=== PATIENT | female | born 1980 | race Caucasian/White ===

== ENCOUNTER 2017-12-12 07:00 | Inpatient (IN) | payer MEDICAID, SELFPAY ==
[2017-12-12 07:08] VITALS: BMI 40.4
[2017-12-12] MEDS: Lactated Ringers 1,000 ML 50 ML IV ×4 (07:30→21:13)
[2017-12-12 07:56] LABS: Hematocrit 34.7 % (37-47); Hemoglobin 12.2 g/dl (12.0-15.0); Mean Corp Hgb Conc 35.2 g/gl (32-36); Mean Corpuscular Hgb 33.2 pg (27.0-32.0); Mean Corpuscular Volume 94.6 fL (81-99); Mean Platelet Vol. 11.8 fl (6.2-12.0); Platelet Count 121 K/mm3 (150-450); RBC Distribution Width SD 43.1 fl (35.1-43.9); Red Blood Count 3.67 M/mm3 (4.2-5.4); Scan Indicated on CBC? Y/N NO; White Blood Count 8.7 K/mm3 (4.4-11.0)
[2017-12-12] MEDS: 0.9% Normal Saline 100 ML IV.SOLN. INTRA-UTER (08:20)
[2017-12-12] MEDS: Oxytocin 30 units/NS 500 ml 30 UNITS/500 ML IV.SOLN IV (08:20)
--- NOTE | 2017-12-12 08:44 | PCM.HP.OB ---
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 Patient saw Dr. Laughlin yesterday for visit and mutual decision was made by Dr. Laughlin and patient to induce today. Pertinent Past Medical History: See Problem list - Hx of AMA, Obesity in this . Hx of Shoulder Dystocia in a previous . Hx of depression - r/t of her mother. Patient has been off medication for 18 years. Has sought out counseling in the past. Hx of HSV2 - has taken PO Acyclovir as directed since 36 wga Allergies azithromycin [From Zithromax Z-Aaron] Adverse Reaction (Verified 04/17/16 23:57) Upset Stomach Smoking Status: Never smoker Alcohol: None Number of Fetus(es): 1 Review of Systems Constitutional: Denies: Chills, Fever, Weight Change HEENT: Denies: Head Aches, Sinus Congestion, Sinus Drainage Cardiovascular: Denies: Chest Pain, Palpitations Respiratory: Denies: Cough, Shortness of breath at rest, Sputum production Gastrointestinal: Denies: Abdominal Pain, Nausea, Vomiting Genitourinary: Denies: Dysuria Gynecological: Denies: Vaginal bleeding, Vaginal discharge Musculoskeletal: Denies: Joint Pain, Joint Tenderness Skin: Denies: Rash, Wounds Neurological: Denies: Numbness, Tingling, Focal weakness Psychiatric: Denies: Anxiety, Depression, Homicidal Ideations, Suicidal Ideations Hematologic/ Lymphatic: Denies: Easy Bruising, Easy Bleeding Physical Exam Vitals: See Nursing Note for Vitals FHT basline 120, moderate variability, + accels, no decels Ctx irregular, not palpable SVE = 1/50/-3, very soft and external os 3-4 cm General: Alert, Oriented x3, No apparent distress Cardiovascular: Regular rate, Regular Rhythm Lungs: Clear to auscultation Abdomen: Bowel Sounds Present, Gravid, Appropriate for Gestational Age - EFW 8# Extremities:: No edema, Normal pulses, No tenderness/swelling Estimated gestational size: Appropriate for gestational size Presentation: Cephalic Cervix Dilation (cm): 1 - External os 3-4cm Station: -3 Effacement (%): 50 Assessment/Plan Active and Suspected Problems Advanced maternal age during in third trimester (Acute) History of shoulder dystocia in prior , currently in third trimester (Acute) 37 y/o @ 39.1 weeks, IOL for AMA and hx of Shoulder Dystocia, Category I FHT P: 1) Dr. Jacobs collaborating physician aware or admission and plan of care 2) Soto catheter placed, IV pitocin started per protocol 3) Patient desires epidural - may receive at request 4) Reassess SVE with change in maternal/ status or when soto catheter comes out Anupama CAMRONA
[2017-12-12] MEDS: fentaNYL-bupivacaine (epidural) 100 ML BAG EPIDURAL ×3 (12:10→22:15)
--- NOTE | 2017-12-12 15:02 | PCM.PN.OB ---
Patient Problems: Active and Suspected Problems Advanced maternal age during in third trimester (Acute) History of shoulder dystocia in prior , currently in third trimester (Acute) Subjective: Notified by nursing staff that soto balloon catheter fell out around 11am. At that time, cervical exam /-3 per nursing staff. Janet RN unsure of presentation of fetus, requested ultrasound to be done. Confirmed cephalic presentation by ultrasound. Due to station of -3 at that time, decision was made to continue IV pitocin and to allow for additional cervical change and descent of head before considering AROM. Currently, patient laying Rt. lateral and reporting increased pain with ctx, patient had epidural placed but she is not sure epidural is working. Anesthesia has been paged for evaluation. Patient requests repeat SVE today. Objective: See Nursing Note for Vital Signs FHT baseline 125, moderate variability, + accels, no decels noted Ctx q 1-4 mild to moderately strong to palpation SVE unchanged - AROM for scant blood-tinged fluid - Physical Exam General: Alert, Oriented x3, Cooperative HEENT: Atraumatic, Normocephalic Lungs: Normal air movement Cardiovascular: Regular rate, No murmurs Abdomen: Soft, Non Tender, Gravid, Appropriate for Gestational Age - EFW = 8# Extremities: No edema, Capillary Refill Less than 3 Seconds Skin: No rashes, No breakdown Musculoskeletal: No Tenderness to Palpation of Joints or Extremities Neurological: Cranial nerves II-XII grossly intact, Deep Tendon Reflexes 2+/4 and Symmetrical Psych/Mental Status: Normal Affect, Appropriate, Alert and oriented to time, place, person, mood and affect Weight: 250 lb 14.177 oz Body Mass Index (BMI) 40.4 Intake and Output for Last 24 Hours 12/10/17 12/11/17 12/12/17 23:59 23:59 23:59 Intake Total 2066 / 206 Output Total 400 / 400 Balance 1667 / 1667 Laboratory Tests Past 24 Hrs 12/12/17 12/12/17 07:30 07:30 WBC 8.7 RBC 3.67 L Hgb 12.2 Hct 34.7 L MCV 94.6 MCH 33.2 H MCHC 35.2 RDW 13.0 RDW Differential 43.1 Plt Count 121 L MPV 11.8 Blood Type A POSITIVE Antibody Screen NEGATIVE Medical Necessity - Tobacco Use Smoking Status: Never smoker Assessment/Plan Active and Suspected Problems Advanced maternal age during in third trimester (Acute) History of shoulder dystocia in prior , currently in third trimester (Acute) 37 y/o @ 39.1 wks, Pitocin IOL for AMA and Hx of Shoulder Dystocia, Category I FHT P: 1) Continue titration of pitocin at this time per protocol 2) Anticipate Anupama CARMONA
[2017-12-12] MEDS: proMETHazine 25 MG/ML Syringe IV (15:55)
--- NOTE | 2017-12-12 18:09 | PCM.PN.OB ---
Patient Problems: Active and Suspected Problems Advanced maternal age during in third trimester (Acute) History of shoulder dystocia in prior , currently in third trimester (Acute) Subjective: Patient had epidural replaced - now reports increased comfort after procedure. Patient denies feelings of rectal pressure at this time - denies urge to push. Patient requests SVE at this time. Objective: See nursing note for vital signs. Pitocin at 2 milliunits at this time. FHT baseline 130, moderate variability, + accels, no decels noted Ctx q 2-4 minutes, palpate mild to moderately strong SVE = 6/50/-3, copious clear fluid noted coming out during exam - Physical Exam General: Alert, Oriented x3, Cooperative HEENT: Atraumatic, Normocephalic Neck: Supple Lungs: Normal air movement Cardiovascular: Regular rate, Regular Rhythm Abdomen: Soft, Non Tender, Gravid Extremities: No edema, Capillary Refill Less than 3 Seconds Skin: No rashes, No breakdown Musculoskeletal: No Tenderness to Palpation of Joints or Extremities Neurological: Cranial nerves II-XII grossly intact, Deep Tendon Reflexes 2+/4 and Symmetrical Psych/Mental Status: Normal Affect, Appropriate, Alert and oriented to time, place, person, mood and affect Weight: 250 lb 14.177 oz Body Mass Index (BMI) 40.4 Intake and Output for Last 24 Hours 12/10/17 12/11/17 12/12/17 23:59 23:59 23:59 Intake Total 7 / 2067 Output Total 400 / 400 Balance 1667 / 1667 Laboratory Tests Past 24 Hrs 12/12/17 12/12/17 07:30 07:30 WBC 8.7 RBC 3.67 L Hgb 12.2 Hct 34.7 L MCV 94.6 MCH 33.2 H MCHC 35.2 RDW 13.0 RDW Differential 43.1 Plt Count 121 L MPV 11.8 Blood Type A POSITIVE Antibody Screen NEGATIVE Medical Necessity - Tobacco Use Smoking Status: Never smoker Assessment/Plan Active and Suspected Problems Advanced maternal age during in third trimester (Acute) History of shoulder dystocia in prior , currently in third trimester (Acute) 37 y/o @ 39.1 weeks, IOL for AMA and Hx of Shoulder Dystocia, Pitocin Induction, Category I FHT P: 1) Continue present management 2) Dr. Jacobs updated on patient status 3) Anticipate Anupama CARMONA
[2017-12-12] MEDS: Acetaminophen 325 MG Tablet PO (19:35)
--- NOTE | 2017-12-12 20:47 | PCM.PN.OB ---
Patient Problems: Active and Suspected Problems Advanced maternal age during in third trimester (Acute) History of shoulder dystocia in prior , currently in third trimester (Acute) Subjective: Patient reports continued comfort following epidural - denies any sensation of rectal pressure at this time. Desire repeat SVE now. Objective: See Nursing Note for Vital Signs FHT baseline 140, moderate variability, + accels, no decels Ctx q 2-4 minutes, palpate moderately strong SVE = 6/80/-2, IUPC placed - Physical Exam General: Alert, Oriented x3, Cooperative HEENT: Atraumatic, Normocephalic Lungs: Normal air movement Cardiovascular: Regular rate, Regular Rhythm Abdomen: Soft, Non Tender Extremities: No edema, Capillary Refill Less than 3 Seconds Skin: No rashes, No breakdown Musculoskeletal: No Tenderness to Palpation of Joints or Extremities Neurological: Cranial nerves II-XII grossly intact Psych/Mental Status: Normal Affect, Appropriate, Alert and oriented to time, place, person, mood and affect Weight: 250 lb 14.177 oz Body Mass Index (BMI) 40.4 Intake and Output for Last 24 Hours 12/10/17 12/11/17 12/12/17 23:59 23:59 23:59 Intake Total 3315 / 3315 Output Total 900 / 900 Balance 2415 / 2415 Laboratory Tests Past 24 Hrs 12/12/17 12/12/17 07:30 07:30 WBC 8.7 RBC 3.67 L Hgb 12.2 Hct 34.7 L MCV 94.6 MCH 33.2 H MCHC 35.2 RDW 13.0 RDW Differential 43.1 Plt Count 121 L MPV 11.8 Blood Type A POSITIVE Antibody Screen NEGATIVE Medical Necessity - Tobacco Use Smoking Status: Never smoker Assessment/Plan Active and Suspected Problems Advanced maternal age during in third trimester (Acute) History of shoulder dystocia in prior , currently in third trimester (Acute) 37 y/o @ 39.1 weeks, Pitocin IOL for AMA and Hx of Shoulder Dystocia, Category I FHT P: 1) Continue titration of pitocin at this time 2) Anticipate Anupama Mcpherson CNM
[2017-12-12] MEDS: Oxytocin 30 units/NS 500 ml 30 UNITS/500 ML IV.SOLN 334 UNITS IV (22:34)
--- NOTE | 2017-12-12 22:59 | OP.PCM_ITS ---
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 (4) History of depression Status: Chronic (5) History of thrombocytopenia Status: Chronic (6) MVP (mitral valve prolapse) Status: Chronic (7) Obesity affecting in third trimester Status: Resolved (8) Encounter for tubal ligation counseling Status: Chronic Vaginal Delivery Maternal Presentation: Medically Indicated Induction - AMA and Hx of Shoulder Dystocia Method of Induction: Pitocin, Fuentes Bulb, Amniotomy Medical Reason for Induction: Maternal Medical Condition: list: - AMA, History of Shoulder Dystocia Amniotic Membrane Rupture Type: Artificial Amniotic Fluid Description: Clear Final JOLENE: 12/18/17 Gestational age: 39 Weeks and 1 Days Date of Procedure: 12/12/17 Pre-Operative Diagnosis: IOL for AMA and Hx of shoulder Dystocia at 39.1 wks Post-Operative Diagnosis: of viable Girl Baby Surgery/ Procedure Performed: Spontaneous Vaginal Delivery Anesthesiologist: Corrine Cadena Type of Anesthesia: Epidural Description of Procedure: Patient found to be 10/00/-1 by nursing staff, variable decels noted during ctx. FSE placed to better assess FHT. Patient then started to feel increased pressure during ctx and urged to bear done. After one push, patient delivered viable female infant over intact perineum at 2231. Infant with spontaneous cry and respirations and was dried and stimulated on maternal abdomen. Apgars 8 and 9. Weight pending. Umbilical cord clamped and cut once it stopped pulsing. Placenta then delivered placenta spontaenously via Fleming mechanism. Placenta intact with 3VC. Placenta triage WNL. Upon inspection of vaginal vault, no lacerations noted. No repair done. EBL = 100cc. Sponge and needle count correct. Vaginal sweep negative. Baby to breast, bonding initiated. Anupama Mcpherson DENSITY CONTROL PUNCHER-CNM Presentation: Vertex, YUMIKO Placental Delivery Description: Spontaneous Placenta Disposition: [facility] Cord Vessel Description: 3 Vessels Nuchal Cord Compression: Without compression Cord Entanglement: Around neck x 1, loose Drain: Fuentes to straight drain Estimated Blood Loss: 100 Infant A gender: Female (1 minute): 8 (5 minute): 9 Episiotomy Description: None Laceration: None Medications given after delivery: IV Pitocin Complications: None
--- NOTE | 2017-12-12 22:59 | PCM.DCVAG ---
Discharge Diet: No Restrictions Discharge Activity: Return to Normal Activity, May not drive while taking narcotic pain medications., May Shower May resume sexual activity in: 4-6 weeks Additional Activity Instructions:: Nothing in the vagina for 4-6 weeks. You may return to work/school in 6 weeks. Call your doctor if your incision/area has: Continuous Slow Oozing, Sudden Increased Bleeding, Increased Pain/ Swelling, Increased Redness, Foul Smelling Discharge Call your doctor if you observe: Fever of 101 or Higher, Inability to urinate, Inability to have a bowel movement, Using more than one pad per hour Additional Instructions: If you experience any of the following, contact your healthcare provider. Bleeding that soaks a pad every hour for 2 hours Fever 100.4 or higher Unrelieved incision or abdominal pain Swelling, redness, discharge or bleeding from your incision or episiotomy site Your incision begins to separate Problems urinating (including inability to urinate or burning while urinating). Visual changes Severe headache Flu-like symptoms Pain or redness in one of both of your breasts Pain, warmth, tenderness or swelling in your legs, especially the calf area Frequent nausea and vomiting Symptoms of depression or anxiety If you experience any of the following, call 911 or go to the nearest Emergency Room. Chest pain Problems breathing Seizure activity Partial or complete paralysis of a body part, slurred speech, weakness or drooping of the face, or a sudden inability to walk or hold your balance Allergies/Adverse Reactions: Allergies azithromycin [From Zithromax Z-Aaron] Adverse Reaction (Verified 04/17/16 23:57) Upset Stomach Medications to take at Discharge Cetirizine HCl [Zyrtec] 10 mg PO DAILY 12/10/16 Omeprazole [Prilosec] 20 mg PO DAILY 12/10/16 Acyclovir [Acyclovir] 400 mg PO BID 12/12/17 Albuterol Sulfate [Ventolin Hfa] 2 puff INHALATION PRN PRN 12/12/17 Fluticasone Propionate [Flovent Hfa] 110 mcg 12/12/17 Vit No.130/Iron/FA [ Tablet] 1 tab PO DAILY 12/12/17 Please Follow Up With: Bushra Saha MD - For PPTL pre-op visit in 4-5 weeks. When: Call to make an appointment with your provider by 6 weeks . If you had elevated Blood Pressure or 4th degree laceration you will need to be seen in 2 weeks. Please Follow Up With: Anupama Mcpherson CNM - For 6 week PP visit Primary Care Physician: Bruna Martinez MD [Primary Care Provider] - Proposed Discharge Date: 12/14/16
--- NOTE | 2017-12-12 23:02 | DCINST_ITS ---
Discharge Diet: No Restrictions Discharge Activity: Return to Normal Activity, May not drive while taking narcotic pain medications., May Shower May resume sexual activity in: 4-6 weeks Additional Activity Instructions:: Nothing in the vagina for 4-6 weeks. You may return to work/school in 6 weeks. Call your doctor if your incision/area has: Continuous Slow Oozing, Sudden Increased Bleeding, Increased Pain/ Swelling, Increased Redness, Foul Smelling Discharge Call your doctor if you observe: Fever of 101 or Higher, Inability to urinate, Inability to have a bowel movement, Using more than one pad per hour Additional Instructions: If you experience any of the following, contact your healthcare provider. * Bleeding that soaks a pad every hour for 2 hours * Fever 100.4 or higher * Unrelieved incision or abdominal pain * Swelling, redness, discharge or bleeding from your incision or episiotomy site * Your incision begins to separate * Problems urinating (including inability to urinate or burning while urinating) . * Visual changes * Severe headache * Flu-like symptoms * Pain or redness in one of both of your breasts * Pain, warmth, tenderness or swelling in your legs, especially the calf area * Frequent nausea and vomiting * Symptoms of depression or anxiety If you experience any of the following, call 911 or go to the nearest Emergency Room. * Chest pain * Problems breathing * Seizure activity * Partial or complete paralysis of a body part, slurred speech, weakness or drooping of the face, or a sudden inability to walk or hold your balance Allergies/Adverse Reactions: Allergies azithromycin [From Zithromax Z-Aaron] Adverse Reaction (Verified 04/17/16 23:57) Upset Stomach Medications to take at Discharge Cetirizine HCl [Zyrtec] 10 mg PO DAILY 12/10/16 Omeprazole [Prilosec] 20 mg PO DAILY 12/10/16 Acyclovir [Acyclovir] 400 mg PO BID 12/12/17 Albuterol Sulfate [Ventolin Hfa] 2 puff INHALATION PRN PRN 12/12/17 Fluticasone Propionate [Flovent Hfa] 110 mcg 12/12/17 Vit No.130/Iron/FA [ Tablet] 1 tab PO DAILY 12/12/17 Please Follow Up With: Bushra Saha MD - For PPTL pre-op visit in 4- 5 weeks. When: Call to make an appointment with your provider by 6 weeks . If you had elevated Blood Pressure or 4th degree laceration you will need to be seen in 2 weeks. Please Follow Up With: Anupama Mcpherson CNM - For 6 week PP visit Primary Care Physician: Bruna Martinez MD [Primary Care Provider] - Proposed Discharge Date: 12/14/16
[2017-12-12] MEDS: Oxytocin 30 units/NS 500 ml 30 UNITS/500 ML IV.SOLN 167 UNITS IV (23:04)
[2017-12-13] MEDS: 0.9% Saline Lock 10 ML Syringe IV (00:04)
--- NOTE | 2017-12-13 01:41 | NURSING ---
@ 0050 soto catheter removed
[2017-12-13] MEDS: Ibuprofen 600 MG Tablet PO ×3 (04:28→17:01)
[2017-12-13 04:30] VITALS: BP 97/55; PULSE 94; RESP 18; TEMP 36.8; O2SAT 95
[2017-12-13 07:54] VITALS: BP 110/42; PULSE 80; RESP 16; TEMP 36.7; O2SAT 100
[2017-12-13] MEDS: Loratadine 10 MG Tablet PO (07:59)
[2017-12-13] MEDS: Acetaminophen 500 MG Tablet 1000 MG PO ×2 (07:59→22:15)
--- NOTE | 2017-12-13 10:38 | PCM.PN.OB ---
- Physical Exam General: Alert, Oriented x3, Cooperative HEENT: Atraumatic, Normocephalic Lungs: Normal air movement Cardiovascular: Regular rate, Regular Rhythm Abdomen: Soft, Non Tender, Non-Distended, Passing Flatus, Obese Extremities: No edema, Capillary Refill Less than 3 Seconds Skin: No rashes, No breakdown Musculoskeletal: No Tenderness to Palpation of Joints or Extremities Neurological: Cranial nerves II-XII grossly intact, Deep Tendon Reflexes 2+/4 and Symmetrical Psych/Mental Status: Normal Affect, Appropriate, Alert and oriented to time, place, person, mood and affect Vital Signs Temp Pulse Resp BP Pulse Ox 98.1 F 80 16 110/42 L 100 12/13/17 07:54 12/13/17 07:54 12/13/17 07:54 12/13/17 07:54 12/13/17 07:54 Oxygen Delivery Method Room Air Weight: 250 lb 14.177 oz Body Mass Index (BMI) 40.4 Intake and Output for Last 24 Hours 12/11/17 12/12/17 12/13/17 23:59 23:59 23:59 Intake Total 3315 / 3315 Output Total 900 / 900 1200 / 1200 Balance 2415 / 2415 -1200 / -1200 Medical Necessity - Tobacco Use Smoking Status: Never smoker Assessment/Plan 37 y/o G5 now P5, s/p following IOL for AMA and Hx of Shoulder Dystocia, Normal PP Course P: 1) SW consult requested by nursing staff - FOB involvement in this uncertain per staff report 2) Continue PP orders 3) Anticipate discharge to home tomorrow Anupama CARMONA
[2017-12-13 12:19] VITALS: BP 103/49; PULSE 77; RESP 16; TEMP 36.8; O2SAT 99
--- NOTE | 2017-12-13 13:11 | CASEMGMT ---
Social Work Referral Date:12/13/17 Date of Assessment:12/13/17 Reason for Consult: Father of baby (FOB) reported to be involved but has not been in to see mother of baby (MOB) or infant once during stay thus far. Informant: Nursing, Chart, MOB Personal Status Mentation: (A&Ox3?): MOB oriented x3 Present during assessment: MOB and Hx : 5 Hx Para: 4 Gender: Female Name: Fernando Martínez (1min): 8 (5min): 9 Care: MOB reports appropriate care - was unable to confirm. Alleged father: Huy Martínez Alleged father involved: FOB involved per MOB, but as nursing has stated FOB has not been present at the hospital. Length of Relationship with alleged father of baby: 3 Years Number of Children in the home: This is one of five children for MOB. MOB reporting to have a 2 yr old, 7 yr old, and 15 yr old that currently live with MOB at home. MOB reporting to have a 20 yr old that has moved out of the home. to join other three siblings at home at discharge alone with FOB per MOB. Custody Comments: MOB reporting to have full custody of all children. This infant and the 2 yr old share paternity. was planned and is accepted per MOB. Living Arrangements: MOB lives with above mentioned children, FOB and now this infant. Education: High School, [employer] certification in billing. Employment: Manager [employer]. Family Dynamics/Relationships: MOB reporting to have positive supports within the home and community. MOB denying any history of abuse or neglect by FOB or any other person. Supports: MOB reports to have support from FOB, sisters, and paternal grandfather. MOB reporting that other children that currently with FOB or paternal grandfather. Substance Abuse Hx and Current Pattern of Use MOB denies any Alcohol, Methamphetamine, Tobacco, Cocaine, Marijuana, Prescriptions Drugs, or Heroin current usage or history. No history of current pending tox screens for infant or MOB. Note: Chart does state a history of tobacco use. Mental Health Hx and Current Status Comment: MOB reporting to have a history of depression as a teen due to maternal grandmother passing away from an enlarged heart. MOB denies any history of suicidal thoughts or ideations. MOB denies any history of depression with other pregnancies. Items/Skills List for Infants Care Supplies: MOB reporting to have all needed supplies: Crib, car seat, cloths, diapers, wipes, formula, breast pump. Bonding With Infant: MOB reporting to have a connection with and to be excited that is now here. Observed Maternal/Paternal Child interaction: MOB holding during assessment. MOB supporting infant head and body appropriately. MOB finger tipping and gazing at infant often during assessment. Emotional Assessment: MOB presenting with a positive affect as could be seen through smiling often towards this social media analyst and . MOB engaged in conversation as seen through MOB making eye contact with this social media analyst and initiating conversation. Resources JFS: Medicaid. WIC: Current with [employer]: No Community Action: No Help Me Grow: No referral at this time - MOB has used Help Me Grow in the past with first child. Children Protective Services Hx: No reported history Transportation: MOB reporting no concerns. Comments: MOB reporting to have positive supports within the home and community. When asked why FOB has not been in to see MOB during hospital stay MOB reporting that FOB is helping with other children. MOB reporting that FOB does not work currently but to have no concerns for financial support. MOB given information on depression, safe sleeping, Help Me Grow, [facility] Resources. Intervention: None at this time. Plan: to discharge home with MOB and other siblings along with FOB. Natali SANCHEZ, SUBSTATION MECHANIC
[2017-12-13 15:50] VITALS: BP 120/61; PULSE 88; RESP 16; TEMP 36.5; O2SAT 100
[2017-12-13] MEDS: Pantoprazole Sodium 20 MG Tablet PO (15:55)
[2017-12-13 19:45] VITALS: BP 117/41; PULSE 70; RESP 16; TEMP 36.6; O2SAT 98
[2017-12-14 01:45] VITALS: BP 114/51; PULSE 80; RESP 16; TEMP 36.2
[2017-12-14] MEDS: Ibuprofen 600 MG Tablet PO ×2 (01:47→07:54)
[2017-12-14] MEDS: Loratadine 10 MG Tablet PO (07:54)
[2017-12-14] MEDS: Pantoprazole Sodium 20 MG Tablet PO (07:55)
[2017-12-14 08:00] VITALS: BP 110/56; PULSE 69; RESP 16; TEMP 36.3; O2SAT 98
--- NOTE | 2017-12-14 09:26 | PN.OBGYN_ITS ---
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 Patient without any questions or concerns today. Patient reports that baby continues to latch well, denies any issues with . Patient denies RODRIGUEZ , scotoma, or issues with ambulation. Patient having continued small leaking of urine but admits that she has sometimes has been holding her urine. Objective: See nursing note for vitals and nursing assessment Nipples intact, no blisters noted. No erythema noted Abdomen NT x 4 quadrants, FF 2FB below umbilicus Scant rubra lochia, perineum intact - Physical Exam General: Alert, Oriented x3, Cooperative HEENT: Atraumatic, Normocephalic Neck: Supple Lungs: Clear to auscultation, Normal air movement Cardiovascular: Regular rate, No murmurs Abdomen: Bowel Sounds Present, Soft, Non Tender, Non-Distended, Passing Flatus Extremities: No edema, Capillary Refill Less than 3 Seconds, No Calf Tenderness Skin: No rashes, No breakdown Musculoskeletal: No Tenderness to Palpation of Joints or Extremities Neurological: Cranial nerves II-XII grossly intact, Deep Tendon Reflexes 2+/4 and Symmetrical Psych/Mental Status: Normal Affect, Appropriate, Alert and oriented to time, place, person, mood and affect Vital Signs Temp Pulse Resp BP Pulse Ox 97.3 F L 69 16 110/56 L 98 12/14/17 08:00 12/14/17 08:00 12/14/17 08:00 12/14/17 08:00 12/14/17 08:00 Oxygen Delivery Method Room Air Weight: 250 lb 14.177 oz Body Mass Index (BMI) 40.4 Intake and Output for Last 24 Hours 12/12/17 12/13/17 12/14/17 23:59 23:59 23:59 Intake Total 3315 / 3315 Output Total 900 / 900 1200 / 1200 Balance 2415 / 2415 -1200 / -1200 Medical Necessity - Tobacco Use Smoking Status: Never smoker Assessment/Plan 37 y/o G5 now P5, PPD #2, Normal Course P: 1) Kegel exercises reinforced, recommendation for 100/day to help strengthen pelvic floor 2) Encourage frequent toileting every 2 hours 3) Anticipatory PP teaching done 4) RTC in 4-5 weeks with MD for pre-op visit for PPTL, patient to return in 6 weeks PP for visit with gluing machine operator Anupama CARMONA
== END 2017-12-14 13:45 | disposition home or self-care (01) | DRG 373 ==
PROVIDERS: Obstetrics & Gynecology; Admitting Provider Obstetrics & Gynecology; Family Provider Internal Medicine; PCP Internal Medicine; Visit Provider Obstetrics & Gynecology
DX: O76 Abnormality in fetal heart rate and rhythm complicating labor and delivery (principal); O69.81X0 Labor and delivery complicated by cord around neck, without compression, not applicable or unspecified; O99.214 Obesity complicating childbirth; E66.9 Obesity, unspecified; Z3A.39 39 weeks gestation of pregnancy; Z37.0 Single live birth
CPT/HCPCS: 59025; 59050; 85027; 86850; 86900; 99218; J7050; J7120; A4216; G0378

== ENCOUNTER 2019-03-15 18:00 | Emergency (ER) | payer MEDICAID, SELFPAY ==
[2019-03-15 18:02] VITALS: BP 116/71; PULSE 91; RESP 18; TEMP 36.6; O2SAT 96; BMI 38.6
--- NOTE | 2019-03-15 18:35 | CT_ITS ---
STUDY: CT ABDOMEN AND PELVIS WITH CONTRAST REASON FOR EXAM: Female, 39 years old. Status post and left lower quadrant mass RADIATION DOSAGE (If Supplied By Facility): CTDIvol = ( 16.98 ) mGy, DLP = ( 1206.60 ) mGycm TECHNIQUE: Transaxial images were obtained from the dome of the diaphragm to the symphysis pubis without oral contrast. 100ML IV Isovue 300 was administered. Sagittal and coronal images were reconstructed. Individualized dose optimization techniques were used for this CT. COMPARISON: None. FINDINGS: There is minor atelectasis within the dependent portion of the lungs and a tiny right pleural effusion.. The visualized portions of the heart are within normal limits. Contracted thick-walled gallbladder with tiny calcified stone but no definitive evidence for acute inflammation Normal spleen. Normal pancreas. Normal bilateral adrenal glands. Normal right kidney. Normal left kidney. Normal visualized stomach. Normal small intestine. Normal colon. The appendix is visualized and appears normal. Normal abdominal aorta. Normal inferior vena cava. Normal retroperitoneum. Uterus is enlarged and within the midline depressing the bladder consistent with recent state. There is very mild asymmetric thickening of the left transverse rectus muscle. There is also a fluid density mass within the subcutaneous fat overlying the left lower pelvic cavity measuring approximately 6.4 x 3 cm most likely representing postsurgical seroma. Lumbar spine demonstrates mild spondylosis CT/Abdomen/Pelvis W IV Cont ONLY IMPRESSION: Enlarged uterus consistent with recent state mild asymmetric thickening of the left transverse rectus muscle with a well-defined fluid collection in the subcutaneous fat in the left lower anterior pelvic wall most likely representing postsurgical seroma. Incidental finding of contracted thick-walled gallbladder with tiny calcified stone without definitive evidence for acute inflammation Electronically Signed: Jose Mc MD at 19:48 EDT , Service support ,
[2019-03-15] MEDS: 0.9% Normal Saline 1,000 ML 1000 ML IV (18:54)
[2019-03-15 19:05] LABS: Absolute Neutrophil Count 5.8 X10^3/uL (2.0-7.7); Basophil# 0.02 X10^3/uL; Basophil% 0.2 % (0-1); Eosinophil# 0.65 X10^3/uL; Eosinophils% 7.3 % (0-5); Hematocrit 32.6 % (37-47); Lymphocyte % 22.5 % (19-41); Mean Corp Hgb Conc 33.7 g/dL (32-36); Mean Corpuscular Hgb 33.2 pg (27.0-32.0); Mean Corpuscular Volume 98.5 fL (81-99); Monocyte# 0.36 X10^3/uL; Monocyte% 4.1 % (0-10); NRBC Flagged by Analyzer 0 % (0-5); Neutrophil # 5.82 X10^3/uL (2.7-7.7); Neutrophil % 65.6 % (47-70); Platelet Count 239 K/mm3 (150-450); RBC Distribution Width SD 46.8 fl (35.1-43.9); Red Blood Count 3.31 M/mm3 (4.2-5.4); White Blood Count 8.9 K/mm3 (4.4-11.0)
[2019-03-15 19:14] LABS: Anion Gap 6 (5-15); BUN 18 mg/dL (7-18); BUN/Creat Ratio 24.4 RATIO (10-20); Calcium,Total 9.1 mg/dL (8.5-10.1); Chloride 106 mmol/L (98-107); Creatinine, Serum 0.74 mg/dL (0.55-1.02); EST Glomerular Filtration Rate 93 mL/min (>60); Est Glom Filt Rate - Afr Amer 113 mL/min (>60); Estimated Creatinine Clearance 88.14 ml/min; Glucose 102 mg/dL (74-106); Sodium Level 141 mmol/L (136-145)
--- NOTE | 2019-03-15 19:22 | ED.VIS.GI ---
History of Present Illness Chief Complaint: Abd Pain Informant: Patient Narrative: Patient had a about 2 weeks ago, she was seen in the office for routine appointment today and they noticed she has a very hard indurated area around the incision, there is some leakage from the right side and they were concerned about the possibility of an abscess versus hematoma, so they sent her to the ER to get labs and a CT scan and further evaluation. Patient states that the pain is actually been improving in this area despite the drainage. She denies any fevers. She has no other complaints. - Past Medical History (1) History of depression Status: Chronic (2) MVP (mitral valve prolapse) Status: Chronic Past Medical History - Allergies and Home Meds Allergies/Adverse Reactions: Allergies azithromycin [From Zithromax Z-Aaron] Adverse Reaction (Verified 03/15/19 18:04) Upset Stomach Primary Care Physician: Bushra Saha MD [STAFF PHYSICIAN] - Keep Lashonda appointment Surgical History: - - Smoking Status: Never smoker Review of Systems General: Denies: Chills, Fever, Sweats Eyes: Denies: Visual changes - bilaterally, Diplopia ENT: Denies: Rhinorrhea, Sore throat Cardiovascular: Denies: Chest pain, Palpitations Respiratory: Denies: Dyspnea, Cough, Dyspnea on exertion Gastrointestinal: Reports: Abdominal pain. Denies: Nausea, Vomiting, Diarrhea, Melena, Hematochezia Genitourinary: Denies: Dysuria, Hematuria, Frequency Musculoskeletal: Denies: Back pain, Swelling, Extremity Pain Skin: Reports: Wounds. Denies: Rash Neurological: Denies: Headache, Weakness, Numbness Physical Exam Vital Signs/Narrative: Vital Signs Temp Pulse Resp BP Pulse Ox 03/15/19 18:02 97.8 F 91 18 116/71 96 Inital Vital Signs reviewed: Yes General: Well nourished, Well developed, Obese, No Acute Distress Head: Normocephalic, Atraumatic Eyes: Perrl, EOMI ENT: Moist mucous membranes, No rhinorrhea Neck: Supple, Nontender Cardiovascular: Regular rate, Regular rhythm, No murmurs Respiratory: No distress, CTA bilaterally, Chest nontender Abdomen: Soft, Nondistended, Normal bowel sounds, Tender - Both sides of low transverse surgical wound mildly tender. Negative for: Guarding, Rebound tenderness Back: Nontender, Normal Inspection Extremities: Nontender, No edema Skin: No Trauma, - - Pelvic wound is draining serosanguineous fluid from the right side only. There is no gross dehiscence of the wound. It is indurated and mildly tender throughout its distribution. It is very firm around it. There is some light bruising that is nontender above it with a purple line drawn around it. The rest of her abdomen is soft and fairly benign. Neurological: Alert, Oriented x3, Cranial nerves II-XII grossly intact, Normal Strength, Normal Sensation, Normal Gait Psychological: Normal affect, Normal Mood Diagnostic/Tx/Re-eval Clinical Impression(s) from Imaging Studies Abdomen/Pelvis CT 03/15/19 18:35 IMPRESSION: Enlarged uterus consistent with recent state mild asymmetric thickening of the left transverse rectus muscle with a well-defined fluid collection in the subcutaneous fat in the left lower anterior pelvic wall most likely representing postsurgical seroma. Incidental finding of contracted thick-walled gallbladder with tiny calcified stone without definitive evidence for acute inflammation Electronically Signed: Jose Mc MD at 19:48 EDT , Service support , Laboratory Tests 03/15/19 03/15/19 Range/Units 18:50 18:50 WBC 8.9 (4.4-11.0) K/mm3 RBC 3.31 L (4.2-5.4) M/mm3 Hgb 11.0 L (12.0-15.0) g/dL Hct 32.6 L (37-47) % MCV 98.5 (81-99) fL MCH 33.2 H (27.0-32.0) pg MCHC 33.7 (32-36) g/dL RDW Std Deviation 46.8 H (35.1-43.9) fl RDW Coeff of Loli 13.0 (11.6-14.6) % Plt Count 239 (150-450) K/mm3 MPV 11.0 (6.2-12.0) fl Immature Gran % (Auto) 0.300 (0.0-0.9) % Neut % (Auto) 65.6 (47-70) % Lymph % (Auto) 22.5 (19-41) % [place] % (Auto) 4.1 (0-10) % Eos % (Auto) 7.3 H (0-5) % Baso % (Auto) 0.2 (0-1) % Absolute Neuts (auto) 5.8 (2.0-7.7) X10^3/uL Absolute Lymphs (auto) 2.00 (0.83-4.51) X10^3/uL Nucleated RBC % 0 (0-5) % Sodium 141 (136-145) mmol/L Potassium 4.0 (3.5-5.1) mmol/L Chloride 106 (98-107) mmol/L Carbon Dioxide 29.0 (21.0-32.0) mmol/L Anion Gap 6 (5-15) BUN 18 (7-18) mg/dL Creatinine 0.74 (0.55-1.02) mg/dL Estim Creat Clear Calc 88.14 ml/min Est GFR (MDRD) Af Amer 113 (>60) mL/min Est GFR (MDRD) Non-Af 93 (>60) mL/min BUN/Creatinine Ratio 24.4 H (10-20) RATIO Glucose 102 (74-106) mg/dL Calcium 9.1 (8.5-10.1) mg/dL - Medical Decision Making Discussed above findings with Dr. Jacobs, who plans to see the patient back in a few days and this will be managed with expectant management. She is already on antibiotics, she will continue those, continue wearing the binder that they gave her, and obstetrics requests no other prescriptions at this time. Patient is comfortable with this plan. ED Disposition - Plan for ED Patient: Disposition: Home or Assisted Living Diagnosis: Abdominal wall seroma Instructions: SEROMA, PostSurgical Referrals: Bushra Saha MD [STAFF PHYSICIAN] - Keep [facility] appointment
[2019-03-15 20:00] VITALS: BP 118/72; PULSE 94; RESP 16; O2SAT 98
[2019-03-15 20:26] VITALS: RESP 16
== END 2019-03-15 20:27 | disposition home or self-care (01) ==
PROVIDERS: Emergency Provider Emergency Medicine; Family Provider Internal Medicine; PCP Internal Medicine
DX: O90.2 Hematoma of obstetric wound (principal); F32.9 Major depressive disorder, single episode, unspecified; I34.1 Nonrheumatic mitral (valve) prolapse; N85.2 Hypertrophy of uterus; Z88.1 Allergy status to other antibiotic agents
CPT/HCPCS: 74177; 80048; 85025; 96360; 99284; J7030; Q9967; A4216

== ENCOUNTER 2019-12-27 19:48 | Emergency (ER) | payer MEDICAID, SELFPAY ==
[2019-12-27 19:48] VITALS: BP 132/70; PULSE 95; RESP 16; TEMP 36.6; O2SAT 96; BMI 43.9
--- NOTE | 2019-12-27 20:00 | ED.VISSUMM ---
- ER Visit Summary Date of Service: 12/27/19 Chief Complaint: Sunburn, right arm History of Present Illness: The patient is a 39 F who presents with a sunburn to her right arm. She states that she got this 2 days ago. She was sitting in a car for multiple hours without any covering. She has pain in the right shoulder. She has been trying Motrin and aloe creams at home. She states nothing is helping. She denies any fevers. No nausea or vomiting. Physical Examination: Vital signs are reviewed. Skin exam reveals a sunburn to the right arm and right shoulder. She does have some blisters, 1 cm x 4, in the tricep area on the right. It is painful and warm to touch. No open sores or areas. Neurologic exam is normal. She does have some tenderness pushing this area. She has full range of motion. Test Results: None performed Emergency Department Course and Treatment: Patient appears to have a sunburn. I will treat her with naproxen and hydrocortisone cream. She will need to follow-up with her PCP if symptoms persist. It does not appear to be cellulitic. I do not feel she needs any oral antibiotics at this time. Treatment Plan: [] Disposition: Discharge Impression: Sunburn, right arm This note was generated with [employer] dictation software. It may contain incorrect words, spelling, and punctuation that were not noted in review of the chart prior to signing ED Disposition - Plan for ED Patient: Disposition: Home or Assisted Living Instructions: [facility] Prescriptions: Hydrocortisone 1% Crm [Hytone] 1 applic TOPICAL BID #1 tube Prescription Printed Naproxen [Naprosyn] 500 mg PO BID PRN #20 tab Prescription Printed Referrals: Bruna Martinez MD [Primary Care Provider] -
[2019-12-27 20:05] VITALS: PULSE 80; RESP 16; O2SAT 99
== END 2019-12-27 20:11 | disposition home or self-care (01) ==
LOC: ED 20:09
PROVIDERS: Emergency Provider Emergency Medicine; PCP Internal Medicine
DX: L55.9 Sunburn, unspecified (principal); J45.909 Unspecified asthma, uncomplicated
CPT/HCPCS: 99282